=== PATIENT | female | born 2000 | race Caucasian/White ===

== ENCOUNTER 2021-10-03 18:14 | Outpatient (REF) | payer OTHER, SELFPAY | END 2021-10-03 18:15 | disposition home or self-care (01) | LOC: NCHCN 18:14 | PROVIDERS: PCP Family Medicine; Visit Provider Nurse Practitioner Family | DX: N89.8 Other specified noninflammatory disorders of vagina (principal) | CPT/HCPCS: 87480; 87510; 87660 ==